=== PATIENT | male | born 1970 | race Caucasian/White ===

== ENCOUNTER 2018-02-17 15:47 | Emergency (ER) | payer MEDICAID ==
[~2018-02-17] VITALS: Ht 170.2 cm; Wt 82.0 kg
[2018-02-17 16:11] VITALS: BP 142/99
== END 2018-02-17 23:05 | disposition left against medical advice (07) ==
LOC: ER 15:47
DX: R10.32 Left lower quadrant pain (principal); R19.7 Diarrhea, unspecified; Z53.21 Procedure and treatment not carried out due to patient leaving prior to being seen by health care provider

== ENCOUNTER 2018-03-05 19:21 | Emergency (ER) | payer MEDICAID, OTHER ==
[~2018-03-05] VITALS: Ht 170.2 cm; Wt 82.0 kg
[2018-03-06 00:10] VITALS: BP 125/81
== END 2018-03-06 00:10 | disposition home or self-care (01) ==
LOC: ER 19:21
DX: M54.31 Sciatica, right side (principal); E11.9 Type 2 diabetes mellitus without complications; E78.00 Pure hypercholesterolemia, unspecified; G89.29 Other chronic pain; M54.9 Dorsalgia, unspecified; F17.200 Nicotine dependence, unspecified, uncomplicated; Z98.890 Other specified postprocedural states
CPT/HCPCS: 99283